=== PATIENT | female | born 1990 | race Caucasian/White ===

== ENCOUNTER 2018-06-05 20:34 | Observation (INO) | payer SELFPAY ==
[2018-06-05] MEDS ORDERED: Sodium Chloride 0.9% 1,000 ML IV ONE ×2 (22:07→23:46)
[2018-06-05] MEDS ORDERED: cefTRIAXone IV 1 gm in Dextros 50 ML IV ONE (22:08)
[2018-06-05 22:19] LABS: EOS % 0.2 % (0.0-4.0); HEMOGLOBIN 13.8 g/dL (11.0-16.0); PLATELET COUNT 277 K/uL (130-400)
[2018-06-05] MEDS ORDERED: Sodium Chloride 0.9% 1,000 ML ONE (22:26)
[2018-06-05 22:27] LABS: SQUAMOUS EPITHIAL 4 /hpf (0-5); URINE BACTERIA FEW (<OCC); URINE BILIRUBIN NEGATIVE (NEGATIVE); URINE BLOOD 2+ (NEGATIVE); URINE CLARITY Hazy (Clear); URINE COLOR Yellow (YELLOW); URINE GLUCOSE (UA) NORMAL (Normal); URINE LEUKOCYTE ESTERASE 2+ Leu/uL (Negative); URINE PROTEIN NEGATIVE (NEGATIVE)
[2018-06-05 22:30] LABS: HCG,QUALITATIVE URINE NEGATIVE (NEGATIVE)
[2018-06-05 22:35] LABS: BASO % 0.3 % (0.0-2.0); LYMPH # 1.6 K/uL (1.0-4.3); LYMPH % 9.7 % (20.0-40.0); MEAN CELL VOLUME 94.7 fL (81.0-99.0); MEAN CORPUSCULAR HEMOGLOBIN 31.2 pg (27.0-31.0); MEAN PLATELET VOLUME 8.5 fL (7.2-11.7); MONO # 1.8 K/uL (0.0-0.8); NEUT # 12.8 K/uL (1.8-7.0); NEUT % 78.8 % (50.0-75.0); RBC 4.44 Mil/uL (3.80-5.20); RED CELL DISTRIBUTION WIDTH 12.9 % (11.5-14.5); WHITE BLOOD COUNT 16.2 K/uL (4.8-10.8)
[2018-06-05 22:43] LABS: ALB/GLOB RATIO 1.3 (1.0-2.1); ALBUMIN 4.5 g/dL (3.5-5.0); ALT/SGPT 18 U/L (9-52); AST/SGOT 27 U/L (14-36); BLOOD UREA NITROGEN 6 mg/dL (7-17); CALCIUM 9.1 mg/dl (8.6-10.4); GFR NON-AFRICAN AMERICAN > 60; LIPASE 31 U/L (23-300)
[2018-06-05 23:48] LABS: BANDS 7 % (0-2); LYMPHOCYTE 5 % (20-40); MICROCYTOSIS SLIGHT; MONOCYTE 13 % (0-10); NEUTROPHIL 75 % (50-75); PLATELET ESTIMATE NORMAL (NORMAL); TOTAL CELLS COUNTED 100
[2018-06-05 23:50] LABS: HYPOCHROMIC SLIGHT; LARGE PLATELETS PRESENT; TEARDROP CELLS SLIGHT
--- NOTE | 2018-06-06 00:05 | C.PDOC ---
History Of Present Illness 27 year old female presents with right flank pain and urinary frequency. Reports Hx of UTI and R pyelonephritis. No other complaints. Time Seen by Provider: 06/05/18 22:01 Chief Complaint (Nursing): Abdominal Pain History Per: Patient History/Exam Limitations: no limitations Onset/Duration Of Symptoms: Hrs Current Symptoms Are (Timing): Still Present Location Of Pain/Discomfort: Other (Right flank) Quality Of Discomfort: Unable To Describe Associated Symptoms: Urinary Symptoms (Frequency) Exacerbating Factors: None Alleviating Factors: None Recent travel outside of the [place]: No Past Medical History Reviewed: Historical Data, Nursing Documentation, Vital Signs Vital Signs: Last Vital Signs Temp 101 F H 06/05/18 23:03 Pulse 94 H 06/05/18 23:03 Resp 20 06/05/18 23:03 BP 105/65 06/05/18 23:03 Pulse Ox 98 06/05/18 23:03 - Medical History PMH: Asthma Family History: States: No Known Family Hx - Social History Hx Alcohol Use: Yes Hx Substance Use: No - Immunization History Hx Tetanus Toxoid Vaccination: No Hx Influenza Vaccination: Yes Hx Pneumococcal Vaccination: Yes Review Of Systems Cardiovascular: Negative for: Chest Pain, Palpitations Respiratory: Negative for: Cough, Shortness of Breath Gastrointestinal: Negative for: Nausea, Vomiting, Abdominal Pain Genitourinary: Positive for: Frequency Musculoskeletal: Positive for: Other (Right flank pain) Neurological: Negative for: Weakness, Numbness Physical Exam - Physical Exam Appears: Non-toxic, Other (Mild distress) Skin: Normal Color, Warm Head: Atraumatic, Normacephalic Eye(s): bilateral: Normal Inspection Oral Mucosa: Moist Neck: Normal, Supple Chest: Symmetrical, No Tenderness Cardiovascular: Rhythm Regular Respiratory: Normal Breath Sounds, No Rales, No Rhonchi, No Wheezing Gastrointestinal/Abdominal: Soft, No Tenderness Back: CVA Tenderness (Right) Neurological/Psych: Oriented x3, Normal Speech ED Course And Treatment - Laboratory Results Result Diagrams: 06/05/18 22:15 06/05/18 22:15 Lab Results: Total Bilirubin 1.0 mg/dL (0.2-1.3) 06/05/18 22:15 AST 27 U/L (14-36) 06/05/18 22:15 ALT 18 U/L (9-52) 06/05/18 22:15 Alkaline Phosphatase 72 U/L (38-126) 06/05/18 22:15 Total Protein 7.9 g/dL (6.3-8.3) 06/05/18 22:15 Albumin 4.5 g/dL (3.5-5.0) 06/05/18 22:15 Globulin 3.5 gm/dL (2.2-3.9) 06/05/18 22:15 Albumin/Globulin Ratio 1.3 (1.0-2.1) 06/05/18 22:15 Lipase 31 U/L (23-300) 06/05/18 22:15 Urine Color Yellow (YELLOW) 06/05/18 22:15 Urine Clarity Hazy (Clear) 06/05/18 22:15 Urine pH 7.0 (5.0-8.0) 06/05/18 22:15 Ur Specific [place] 1.009 (1.003-1.030) 06/05/18 22:15 Urine Protein Negative mg/dL (NEGATIVE) 06/05/18 22:15 Urine Glucose (UA) Normal mg/dL (Normal) 06/05/18 22:15 Urine Ketones Trace mg/dL (NEGATIVE) 06/05/18 22:15 Urine Blood 2+ (NEGATIVE) H 06/05/18 22:15 Urine Nitrate Negative (NEGATIVE) 06/05/18 22:15 Urine Bilirubin Negative (NEGATIVE) 06/05/18 22:15 Urine Urobilinogen 4.0 mg/dL (0.2-1.0) H 06/05/18 22:15 Ur Leukocyte Esterase 2+ Surendra/uL (Negative) H 06/05/18 22:15 Urine WBC (Auto) 24 /hpf (0-5) H 06/05/18 22:15 Urine RBC (Auto) 5 /hpf (0-3) H 06/05/18 22:15 Ur Squamous Epith Cells 4 /hpf (0-5) 06/05/18 22:15 Urine Bacteria Few (<OCC) H 06/05/18 22:15 Urine HCG, Qual Negative (NEGATIVE) 06/05/18 22:15 Urine HCG, Qual Negative (NEGATIVE) 06/05/18 22:15 Lab Interpretation: Abnormal (UA 24 WBC's) Urine POC: Negative O2 Sat by Pulse Oximetry: 98 Pulse Ox Interpretation: Normal Reevaluation Time: 00:52 Reassessment Condition: Improved - Physician Consult Information Outcome Of Conversation: 0100: d/w Hospitalist Plan Nurse- cristal Dean to admit Medical Decision Making Medical Decision Making: pyelonephritis R prob due to frequent unresolved pyelo Disposition Doctor Will See Patient In The: Hospital Counseled Patient/Family Regarding: Studies Performed, Diagnosis - Disposition Disposition: HOSPITALIZED Disposition Time: 00:52 Condition: GOOD - Clinical Impression Clinical Impression: Pyelonephritis - Scribe Statement The provider has reviewed the documentation as recorded by the Scribbe Khan All medical record entries made by the Yosephibbe were at my direction and personall y dictated by me. I have reviewed the chart and agree that the record accurately reflects my personal performance of the history, physical exam, medical decision making, and the department course for this patient. I have also personally directed, reviewed, and agree with the discharge instructions and disposition.
[2018-06-06] MEDS ORDERED: Iodixanol 320 MG/ML 100 ML BOTTLE IV ONE (00:12)
--- NOTE | 2018-06-06 00:36 | C.PDOC ---
Time Seen by Provider: 06/05/18 22:01 Chief Complaint (Nursing): Abdominal Pain Past Medical History Reviewed: Historical Data, Nursing Documentation, Vital Signs Vital Signs: Last Vital Signs Temp 102.6 F H 06/05/18 21:21 Pulse 118 H 06/05/18 21:21 Resp 16 06/05/18 21:21 BP 106/70 06/05/18 21:21 Pulse Ox 100 06/05/18 21:21 - Medical History PMH: Asthma Other PMH: frequent UTI, Pyelonephritis - Social History Hx Alcohol Use: Yes Hx Substance Use: No - Immunization History Hx Tetanus Toxoid Vaccination: No Hx Influenza Vaccination: Yes Hx Pneumococcal Vaccination: Yes ED Course And Treatment - Laboratory Results Result Diagrams: 06/05/18 22:15 06/05/18 22:15 Lab Results: Total Bilirubin 1.0 mg/dL (0.2-1.3) 06/05/18 22:15 AST 27 U/L (14-36) 06/05/18 22:15 ALT 18 U/L (9-52) 06/05/18 22:15 Alkaline Phosphatase 72 U/L (38-126) 06/05/18 22:15 Total Protein 7.9 g/dL (6.3-8.3) 06/05/18 22:15 Albumin 4.5 g/dL (3.5-5.0) 06/05/18 22:15 Globulin 3.5 gm/dL (2.2-3.9) 06/05/18 22:15 Albumin/Globulin Ratio 1.3 (1.0-2.1) 06/05/18 22:15 Lipase 31 U/L (23-300) 06/05/18 22:15 Urine Color Yellow (YELLOW) 06/05/18 22:15 Urine Clarity Hazy (Clear) 06/05/18 22:15 Urine pH 7.0 (5.0-8.0) 06/05/18 22:15 Ur Specific [place] 1.009 (1.003-1.030) 06/05/18 22:15 Urine Protein Negative mg/dL (NEGATIVE) 06/05/18 22:15 Urine Glucose (UA) Normal mg/dL (Normal) 06/05/18 22:15 Urine Ketones Trace mg/dL (NEGATIVE) 06/05/18 22:15 Urine Blood 2+ (NEGATIVE) H 06/05/18 22:15 Urine Nitrate Negative (NEGATIVE) 06/05/18 22:15 Urine Bilirubin Negative (NEGATIVE) 06/05/18 22:15 Urine Urobilinogen 4.0 mg/dL (0.2-1.0) H 06/05/18 22:15 Ur Leukocyte Esterase 2+ Surendra/uL (Negative) H 06/05/18 22:15 Urine WBC (Auto) 24 /hpf (0-5) H 06/05/18 22:15 Urine RBC (Auto) 5 /hpf (0-3) H 06/05/18 22:15 Ur Squamous Epith Cells 4 /hpf (0-5) 06/05/18 22:15 Urine Bacteria Few (<OCC) H 06/05/18 22:15 Urine HCG, Qual Negative (NEGATIVE) 06/05/18 22:15 Urine HCG, Qual Negative (NEGATIVE) 06/05/18 22:15 O2 Sat by Pulse Oximetry: 100 Disposition - Disposition
[2018-06-06] MEDS ORDERED: Sodium Chloride 0.9% 1,000 ML IV SCH (03:00)
--- NOTE | 2018-06-06 03:10 | CP.PCM.HP ---
<Brenda Clark P - Last Filed: 06/06/18 07:24> History of Present Illness - History of Present Illness History of Present Illness: H&P for Dr. Guillen. HPI: 27 year old female presents to ED for severe R flank and RUQ abdominal pain that began yesterday. Pain is 10/10 and described as throbbing. Pain worsens with moving and improves with laying still. Patient has never experienced these symptoms before. Associated symptoms include fever, chills, nausea and 5 episodes of vomiting yesterday, non bloody, non billious. Tylenol helped improve fever. Patient denies diarrhea, constipation, dysuria, hematuria, and urinary frequency. PMHx: Asthma PSHx: breast augmentation Meds: Denies Allergies: Tetanus toxoid- swelling FamHx: Denies SocHx: Denies tobacco and illict drugs. 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 PMD: None Review of Systems: -Gen: + fever, + chills, No headache, No lethargy, No weakness. -HEENT: No dizziness, No change in vision, No change in hearing, No sore throat, No dysphagia, No nasal congestion, No mucous. -Cardio: No chest pain, No palpitations, No lower extremity edema, No orthopnea. -Resp: No cough, No dyspnea, No hemoptysis, No wheezing, No pain on inspiration. -GI: + abdominal pain, +flank pain, + nausea/vomiting, No diarrhea/constipation, No hematochezia, No hematemesis. -: No dysuria, No urinary freq, No incontinence, No hematuria, No change in urinary stream. -MSK: No back pain, No muscle weakness, No radiating pain. -Skin: No itching, No rash, No lesions. -Neuro: No confusion, No numbness, No tingling, No focal weakness, No radicular pain, No syncope. -Psych: No anxiety, No depression, No H/I, No S/I, No hallucinations. Present on Admission - Present on Admission Any Indicators Present on Admission: No Past Patient History - Past Social History Smoking Status: Never Smoked - PULMONARY Hx Asthma: Yes - PSYCHIATRIC Hx Substance Use: No - SURGICAL HISTORY Hx Surgeries: Yes Other/Comment: Bilateral breast implant 7 years ago - ANESTHESIA Hx Anesthesia: Yes Hx Anesthesia Reactions: No Meds Allergies/Adverse Reactions: Allergies Allergy/AdvReac Type Severity Reaction Status Date / Time Tetanus Vaccines and Toxoid Allergy Verified 06/05/18 21:30 Physical Exam - Constitutional Appears: No Acute Distress - Head Exam Head Exam: ATRAUMATIC, NORMOCEPHALIC - Eye Exam Eye Exam: EOMI, Normal appearance, PERRL - ENT Exam ENT Exam: Mucous Membranes Moist - Neck Exam Neck exam: Positive for: Full Rom, Normal Inspection - Respiratory Exam Respiratory Exam: Clear to Auscultation Bilateral. absent: Rales, Rhonchi, Wheezes - Cardiovascular Exam Cardiovascular Exam: Tachycardia, +S1, +S2 - GI/Abdominal Exam GI & Abdominal Exam: Normal Bowel Sounds, Rebound (in all quadrants), Soft, Tenderness (to palpation of RUQ, [place] sign negative). absent: Distended, Guarding, Rigid - Back Exam Back exam: CVA tenderness (R) - Neurological Exam Neurological exam: Alert, CN II-XII Intact, Oriented x3 - Psychiatric Exam Psychiatric exam: Normal Affect, Normal Mood - Skin Skin Exam: Dry, Normal Color, Warm Results - Vital Signs Recent Vital Signs: Last Vital Signs Temp 99.6 F 06/06/18 01:50 Pulse 87 06/06/18 01:50 Resp 20 06/06/18 01:50 BP 108/69 06/06/18 01:50 Pulse Ox 100 06/06/18 01:50 - Labs Result Diagrams: 06/06/18 06:19 06/06/18 06:19 Labs: Laboratory Results - last 24 hr 06/05/18 06/05/18 06/05/18 22:15 22:15 22:15 WBC 16.2 H RBC 4.44 Hgb 13.8 Hct 42.0 MCV 94.7 MCH 31.2 H MCHC 33.0 RDW 12.9 Plt Count 277 MPV 8.5 Neut % (Auto) 78.8 H Lymph % (Auto) 9.7 L Cole % (Auto) 11.0 H Eos % (Auto) 0.2 Baso % (Auto) 0.3 Neut # (Auto) 12.8 H Lymph # (Auto) 1.6 Cole # (Auto) 1.8 H Eos # (Auto) 0.0 Baso # (Auto) 0.0 Neutrophils % (Manual) 75 Band Neutrophils % 7 H Lymphocytes % (Manual) 5 L Monocytes % (Manual) 13 H Platelet Estimate Normal Large Platelets Present Hypochromasia (manual) Slight Microcytosis (manual) Slight Tear Drop Cells Slight Sodium 136 Potassium 4.1 Chloride 99 Carbon Dioxide 27 Anion Gap 14 BUN 6 L Creatinine 0.8 Est GFR ( Amer) > 60 Est GFR (Non-Af Amer) > 60 Random Glucose 105 Calcium 9.1 Total Bilirubin 1.0 AST 27 ALT 18 Alkaline Phosphatase 72 Total Protein 7.9 Albumin 4.5 Globulin 3.5 Albumin/Globulin Ratio 1.3 Lipase 31 Urine Color Yellow Urine Clarity Hazy Urine pH 7.0 Ur Specific [place] 1.009 Urine Protein Negative Urine Glucose (UA) Normal Urine Ketones Trace Urine Blood 2+ H Urine Nitrate Negative Urine Bilirubin Negative Urine Urobilinogen 4.0 H Ur Leukocyte Esterase 2+ H Urine WBC (Auto) 24 H Urine RBC (Auto) 5 H Ur Squamous Epith Cells 4 Urine Bacteria Few H Urine HCG, Qual Negative Assessment & Plan - Assessment and Plan (Free Text) Assessment: 27 year old F with R pyelonephritis Pyelonephritis CT abdomen: Multifocal R sided pyelonephritis, no fluid collection or abscess. See full report UA: 2+ blood, 2+LE, few bacteria WBC 16.2, bands 7 Zosyn 3.375g IVPB Q6H Tylenol 650mg Q6H PRN Morphine 1mg Q4H PRN pain Zofran 4mg IVP Q6H PRN NS @ 100mls/hr Hx of Asthma Patient not on any home meds Ppx SCDs Florastor Regular diet as tolerated Discussed with Dr. Mindy Clark, PGY-1 <Sameer Guillen - Last Filed: 06/06/18 19:25> Results - Vital Signs Recent Vital Signs: Last Vital Signs Temp 98.6 F 06/06/18 15:25 Pulse 86 06/06/18 15:25 Resp 18 06/06/18 15:25 BP 105/66 06/06/18 15:25 Pulse Ox 100 06/06/18 15:25 - Labs Result Diagrams: 06/06/18 06:19 06/06/18 06:19 Labs: Laboratory Results - last 24 hr 06/05/18 06/05/18 06/05/18 22:15 22:15 22:15 WBC 16.2 H RBC 4.44 Hgb 13.8 Hct 42.0 MCV 94.7 MCH 31.2 H MCHC 33.0 RDW 12.9 Plt Count 277 MPV 8.5 Neut % (Auto) 78.8 H Lymph % (Auto) 9.7 L Cole % (Auto) 11.0 H Eos % (Auto) 0.2 Baso % (Auto) 0.3 Neut # (Auto) 12.8 H Lymph # (Auto) 1.6 Cole # (Auto) 1.8 H Eos # (Auto) 0.0 Baso # (Auto) 0.0 Neutrophils % (Manual) 75 Band Neutrophils % 7 H Lymphocytes % (Manual) 5 L Monocytes % (Manual) 13 H Platelet Estimate Normal Large Platelets Present Hypochromasia (manual) Slight Microcytosis (manual) Slight Tear Drop Cells Slight Sodium 136 Potassium 4.1 Chloride 99 Carbon Dioxide 27 Anion Gap 14 BUN 6 L Creatinine 0.8 Est GFR ( Amer) > 60 Est GFR (Non-Af Amer) > 60 Random Glucose 105 Lactic Acid Calcium 9.1 Total Bilirubin 1.0 AST 27 ALT 18 Alkaline Phosphatase 72 Total Protein 7.9 Albumin 4.5 Globulin 3.5 Albumin/Globulin Ratio 1.3 Lipase 31 Urine Color Yellow Urine Clarity Hazy Urine pH 7.0 Ur Specific [place] 1.009 Urine Protein Negative Urine Glucose (UA) Normal Urine Ketones Trace Urine Blood 2+ H Urine Nitrate Negative Urine Bilirubin Negative Urine Urobilinogen 4.0 H Ur Leukocyte Esterase 2+ H Urine WBC (Auto) 24 H Urine RBC (Auto) 5 H Ur Squamous Epith Cells 4 Urine Bacteria Few H Urine HCG, Qual Negative RPR Hepatitis A IgM Ab Hep Bs Antigen Hep B Core IgM Ab Hepatitis C Antibody HIV 1&2 Antibody Screen 06/06/18 06/06/18 06/06/18 06:19 06:19 06:21 WBC 12.7 H RBC 3.52 L Hgb 11.2 D Hct 33.6 L MCV 95.2 MCH 31.9 H MCHC 33.5 RDW 12.4 Plt Count 212 MPV 8.2 Neut % (Auto) 75.8 H Lymph % (Auto) 11.5 L Cole % (Auto) 12.0 H Eos % (Auto) 0.3 Baso % (Auto) 0.4 Neut # (Auto) 9.6 H Lymph # (Auto) 1.5 Cole # (Auto) 1.5 H Eos # (Auto) 0.0 Baso # (Auto) 0.1 Neutrophils % (Manual) Band Neutrophils % Lymphocytes % (Manual) Monocytes % (Manual) Platelet Estimate Large Platelets Hypochromasia (manual) Microcytosis (manual) Tear Drop Cells Sodium 136 Potassium 3.6 Chloride 108 H Carbon Dioxide 23 Anion Gap 9 L BUN 6 L Creatinine 0.8 Est GFR ( Amer) > 60 Est GFR (Non-Af Amer) > 60 Random Glucose 96 Lactic Acid 0.6 L Calcium 7.8 L Total Bilirubin 0.9 AST 17 ALT 22 Alkaline Phosphatase 55 Total Protein 5.7 L Albumin 3.1 L D Globulin 2.7 Albumin/Globulin Ratio 1.2 Lipase Urine Color Urine Clarity Urine pH Ur Specific [place] Urine Protein Urine Glucose (UA) Urine Ketones Urine Blood Urine Nitrate Urine Bilirubin Urine Urobilinogen Ur Leukocyte Esterase Urine WBC (Auto) Urine RBC (Auto) Ur Squamous Epith Cells Urine Bacteria Urine HCG, Qual RPR Hepatitis A IgM Ab Hep Bs Antigen Hep B Core IgM Ab Hepatitis C Antibody HIV 1&2 Antibody Screen 06/06/18 06/06/18 06/06/18 14:06 14:06 14:06 WBC RBC Hgb Hct MCV MCH MCHC RDW Plt Count MPV Neut % (Auto) Lymph % (Auto) Cole % (Auto) Eos % (Auto) Baso % (Auto) Neut # (Auto) Lymph # (Auto) Cole # (Auto) Eos # (Auto) Baso # (Auto) Neutrophils % (Manual) Band Neutrophils % Lymphocytes % (Manual) Monocytes % (Manual) Platelet Estimate Large Platelets Hypochromasia (manual) Microcytosis (manual) Tear Drop Cells Sodium Potassium Chloride Carbon Dioxide Anion Gap BUN Creatinine Est GFR ( Amer) Est GFR (Non-Af Amer) Random Glucose Lactic Acid Calcium Total Bilirubin AST ALT Alkaline Phosphatase Total Protein Albumin Globulin Albumin/Globulin Ratio Lipase Urine Color Urine Clarity Urine pH Ur Specific [place] Urine Protein Urine Glucose (UA) Urine Ketones Urine Blood Urine Nitrate Urine Bilirubin Urine Urobilinogen Ur Leukocyte Esterase Urine WBC (Auto) Urine RBC (Auto) Ur Squamous Epith Cells Urine Bacteria Urine HCG, Qual RPR Nonreactive Hepatitis A IgM Ab Negative Hep Bs Antigen Negative Hep B Core IgM Ab Negative Hepatitis C Antibody Negative HIV 1&2 Antibody Screen Negative Assessment & Plan - Date & Time Date: 06/06/18 (I have seen and examined the patient. I agree with the findings and plan of care as documented by Dr. Clark. Patient with pyelonephritis. SIRS. Zosyn for now. Urine and blood cultures. History of asthma. Continue home meds. Monitor for acute changes.) Time: 19:23 Attending/Attestation - Attestation I have personally seen and examined this patient.: Yes I have fully participated in the care of the patient.: Yes I have reviewed all pertinent clinical information: Yes
[2018-06-06] MEDS: Piperacillin/Tazobact 3.375 GM in Sodium Chloride 100 ML IVPB SCH ×4 (03:30→20:20)
[2018-06-06 06:28] LABS: BASO # 0.1 K/uL (0.0-0.2); BASO % 0.4 % (0.0-2.0); EOS % 0.3 % (0.0-4.0); LYMPH # 1.5 K/uL (1.0-4.3); LYMPH % 11.5 % (20.0-40.0); MEAN CELL VOLUME 95.2 fL (81.0-99.0); MEAN CORPUSCULAR HEMOGLOBIN 31.9 pg (27.0-31.0); MEAN CORPUSCULAR HGB CONC 33.5 g/dL (33.0-37.0); MEAN PLATELET VOLUME 8.2 fL (7.2-11.7); MONO # 1.5 K/uL (0.0-0.8); NEUT # 9.6 K/uL (1.8-7.0); NEUT % 75.8 % (50.0-75.0); RBC 3.52 Mil/uL (3.80-5.20); RED CELL DISTRIBUTION WIDTH 12.4 % (11.5-14.5); WHITE BLOOD COUNT 12.7 K/uL (4.8-10.8)
[2018-06-06 06:50] LABS: ALB/GLOB RATIO 1.2 (1.0-2.1); ALBUMIN 3.1 g/dL (3.5-5.0); ALT/SGPT 22 U/L (9-52); AST/SGOT 17 U/L (14-36); BLOOD UREA NITROGEN 6 mg/dL (7-17); CALCIUM 7.8 mg/dl (8.6-10.4); GFR NON-AFRICAN AMERICAN > 60
[2018-06-06 06:57] LABS: HEMOGLOBIN 11.2 g/dL (11.0-16.0)
--- NOTE | 2018-06-06 07:25 | CP.PCM.PN ---
<Sachin Ennis - Last Filed: 06/06/18 13:08> Subjective - Date & Time of Evaluation Date of Evaluation: 06/06/18 Time of Evaluation: 07:25 - Subjective Subjective: PGY-1 Medicine Progress Note for Dr. Lloyd Patient seen and examined at bedside this AM. No acute overnight events reported. Patient spiked fever this AM of 101, tylenol was given. Patient continues to endorse mild RUQ and R flank pain, though pain is under control. She denies any nausea, new episodes of vomiting, diarrhea. No dysuria or urinary frequency reported this AM. Patient states she has had UTIs in the past, treated with unknown antibiotics. She is sexually active with her boyfriend of 1 year, no other partners. She does not use condoms, uses OCPs infrequently (obtained from Mom in [place]), no IUD devices. 12 pt ROS reviewed and otherwise negative. Objective - Vital Signs/Intake and Output Vital Signs (last 24 hours): Temp Pulse Resp BP Pulse Ox 99.6 F 87 20 108/69 100 06/06/18 01:50 06/06/18 01:50 06/06/18 01:50 06/06/18 01:50 06/06/18 01:50 Intake and Output: 06/06/18 06/06/18 06:59 18:59 Intake Total 700 Balance 700 - Medications Medications: Current Medications Acetaminophen (Tylenol 325mg Tab) 650 mg PO Q6 PRN PRN Reason: Fever >100.4 F Sodium Chloride (Sodium Chloride 0.9%) 1,000 mls @ 100 mls/hr IV .Q10H MARILUZ Last Admin: 06/06/18 03:15 Dose: 100 mls/hr Piperacillin Sod/Tazobactam (Sod 3.375 gm/ Sodium Chloride) 100 mls @ 200 mls/hr IVPB Q6H MARILUZ; Protocol Last Admin: 06/06/18 03:30 Dose: 200 mls/hr Morphine Sulfate (Morphine) 1 mg IVP Q4H PRN PRN Reason: Pain, moderate (4-7) Ondansetron HCl (Zofran Inj) 4 mg IVP Q6 PRN PRN Reason: Nausea/Vomiting - Labs Labs: 06/06/18 06:19 06/06/18 06:19 - Constitutional Appears: Non-toxic, No Acute Distress - Head Exam Head Exam: ATRAUMATIC, NORMAL INSPECTION, NORMOCEPHALIC - Eye Exam Eye Exam: EOMI, Normal appearance, PERRL Pupil Exam: NORMAL ACCOMODATION - ENT Exam ENT Exam: Mucous Membranes Moist, Normal Exam - Neck Exam Neck Exam: Full ROM, Normal Inspection. absent: Lymphadenopathy, Tenderness - Respiratory Exam Respiratory Exam: Clear to Ausculation Bilateral, NORMAL BREATHING PATTERN. absent: Accessory Muscle Use, Rales, Rhonchi, Wheezes, Respiratory Distress, Stridor - Cardiovascular Exam Cardiovascular Exam: REGULAR RHYTHM, +S1, +S2 - GI/Abdominal Exam GI & Abdominal Exam: Guarding (mild voluntary guarding RUQ), Soft, Tenderness, Normal Bowel Sounds (RUQ). absent: Distended, Firm, Rigid, Organomegaly, Rebound - Extremities Exam Extremities Exam: Full ROM, Normal Capillary Refill, Normal Inspection. absent: Calf Tenderness, Pedal Edema - Back Exam Back Exam: CVA tenderness (R), NORMAL INSPECTION - Neurological Exam Neurological Exam: Alert, Awake, Oriented x3 - Psychiatric Exam Psychiatric exam: Normal Affect, Normal Mood - Skin Skin Exam: Diaphoretic, Intact, Normal Color, Warm Assessment and Plan - Assessment and Plan (Free Text) Assessment: 27 year old female with pmhx of asthma, past UTIs presenting with R flank, RUQ pain and fevers, image findings suggestive of pyelonephritis. Plan: Acute pyelonephritis -fever spike this AM of 101 F, continue to monitor -CVA tenderness R -Leukocytosis downtrending -f/u cultures and sensitivity -CT abdomen/pelvis: multifocal R sided pyelonephritis, no fluid collection or abscess noted -morphine 1 mg q4h prn -tylenol 650 mg PO q6h prn -zofran 4 mg IVP q6h prn -NS @ 150cc/hr -zosyn 3.375g IVPB q6h [facility] Safe sex counseling -pt in monogamous sexual relationship with 1 male partner x 1 year -denies use of condoms, uses OCPs intermittently -counseling provided on use of barrier protection to reduce risk of STIs and U TIs -denies ever being tested for STIs, amenable to testing today -f/u GC/chlamydia, RPR, HIV, hepatitis panel Hx of asthma -< 1 attack/year -uses nebulizer that she obtains from mom in [place] PPx, Diet, Disposition -DVT ppx: scds -GI ppx: florastor -Diet: regular diet Case discussed with Dr. Prema Ennis DO, PGY-1 <Jewels Lloyd V - Last Filed: 06/06/18 17:10> Objective - Vital Signs/Intake and Output Vital Signs (last 24 hours): Temp Pulse Resp BP Pulse Ox 101 F H 94 H 20 111/64 97 06/06/18 08:50 06/06/18 07:00 06/06/18 07:00 06/06/18 07:00 06/06/18 07:00 Intake and Output: 06/06/18 06/06/18 06:59 18:59 Intake Total 700 1500 Balance 700 1500 - Medications Medications: Current Medications Acetaminophen (Tylenol 325mg Tab) 650 mg PO Q6 PRN PRN Reason: Fever >100.4 F Last Admin: 06/06/18 08:50 Dose: 650 mg Piperacillin Sod/Tazobactam (Sod 3.375 gm/ Sodium Chloride) 100 mls @ 200 mls/hr IVPB Q6H MARILUZ; Protocol Last Admin: 06/06/18 15:10 Dose: 200 mls/hr Sodium Chloride (Sodium Chloride 0.9%) 1,000 mls @ 150 mls/hr IV .Q6H40M MARILUZ Last Admin: 06/06/18 11:17 Dose: 150 mls/hr Morphine Sulfate (Morphine) 1 mg IVP Q4H PRN PRN Reason: Pain, moderate (4-7) Last Admin: 06/06/18 15:14 Dose: 1 mg Ondansetron HCl (Zofran Inj) 4 mg IVP Q6 PRN PRN Reason: Nausea/Vomiting Last Admin: 06/06/18 12:10 Dose: 4 mg Saccharomyces Boulardii (Florastor) 250 mg PO BID MARILUZ Last Admin: 06/06/18 11:00 Dose: 250 mg - Labs Labs: 06/06/18 06:19 06/06/18 06:19 Attending/Attestation - Attestation I have personally seen and examined this patient.: Yes I have fully participated in the care of the patient.: Yes I have reviewed all pertinent clinical information, including history, physical exam and plan: Yes Notes (Text): Patient seen, examined and case discussed with certified court/medical interpreter. Patient seen this morning. She reports yesterday she had a fever which prompted her to come to hospital. Patient reports history of frequent UTIs in the past, which she has used Amoxicilln in the past. Patient reports she is monogamous with her current boyfriend, however, she reports she does not use condoms and use OCPs but recently ran out, she reports she does not want to be . Patient noted on exam to have left CVA tenderness, fever, and mild suprapubic pain. Patient was febrile this morning 101F. 1. Sepsis secondary to Acute pyelonephritis Assessment/Plan * Criteria: fever, elevated white count, source of infection pyelonephritis * CT Abdomen/Pelvis CT (06/05/18): right sided pyelonephritis and urinary tract infectious process. No evidence of abscess formation. * Zosyn 3.375 g IVPB Q6H (active since 06/06/18) * Florastor 250mg PO BID * Morphine 1mg IVP Q4H PRN pain, moderate * NS 150cc/hr * Blood culture (06/05/18): pending * Blood culture (06/06/18): pending * Urine culture (06/05/18): pending * Advise hygiene practices to avoid UTI including wiping back to front, void post intercourse 2. Safe sex counseling Assessment/Plan * counselled regarding prevention including OCPs * Advised use of condoms during intercourse * Advised OCP or IUD pending preference--->advised to f/u obgyn for further misha gement * Amenable to STD testing 3. Hx of asthma, Mild Assessment/Plan * Duoneb PRN shortness of breathe 4. PPx, Diet, Disposition * DVT ppx: scds * GI ppx: florastor 250mg PO BID * IV fluids: NS 150 cc/hr * Diet: regular diet Disposition: follow-up cultures for optimization of therapy. Patient to benefit from IV antibiotic as this time for her acute pyelonephritis.
--- NOTE | 2018-06-06 08:47 | CT ---
Date of service: 06/06/2018 PROCEDURE: CT Abdomen and Pelvis with contrast HISTORY: ? R pyelo COMPARISON: None. TECHNIQUE: Contrast dose: 100 mL of Visipaque 320 intravenously. Axial and reformatted coronal and sagittal CT images of the abdomen and pelvis were obtained after IV contrast administration Radiation dose: Total exam DLP = 676.63 mGy-cm. This CT exam was performed using one or more of the following dose reduction techniques: Automated exposure control, adjustment of the mA and/or kV according to patient size, and/or use of iterative reconstruction technique. FINDINGS: LOWER THORAX: Mild bibasilar atelectasis. LIVER: Unremarkable. No gross lesion or ductal dilatation. GALLBLADDER AND BILE DUCTS: Unremarkable. PANCREAS: Unremarkable. No gross lesion or ductal dilatation. SPLEEN: Unremarkable. ADRENALS: Unremarkable. No mass. KIDNEYS AND URETERS: Mild enlargement of the right kidney demonstrate patchy cortical enhancement consistent with acute pyelonephritis. There is a trace right perinephric fluid seen. There is mild dilatation of the right kidney collecting system associated with diffuse wall thickening suggestive of UTI and infectious process. The left kidney is grossly unremarkable. VASCULATURE: Unremarkable. No aortic aneurysm. No aortic atherosclerotic calcification or mural plaque present. BOWEL: Unremarkable. No obstruction. No gross mural thickening. APPENDIX: Normal appendix. PERITONEUM: Unremarkable. No free fluid. No free air. LYMPH NODES: Unremarkable. No enlarged lymph nodes. BLADDER: Unremarkable. REPRODUCTIVE: Unremarkable. BONES: No acute fracture. OTHER FINDINGS: None. IMPRESSION: Findings consistent with right-sided pyelonephritis and urinary tract infectious process. No evidence of abscess formation. Preliminary report contains concordant findings was submitted by [facility].
[2018-06-06] MEDS: Saccharomyces Boulardi 250 mg Cap PO SCH ×2 (11:00→17:10)
[2018-06-06] MEDS: Sodium Chloride 0.9% 1,000 ML IV SCH ×4 (11:17→23:55)
[2018-06-06 14:58] LABS: HEPATITIS B SURFACE AG Negative (NEGATIVE)
[2018-06-06 15:04] LABS: HEPATITIS A IGM NEGATIVE (NEGATIVE); HEPATITIS B CORE AB NEGATIVE (NEGATIVE)
[2018-06-06 15:16] LABS: HEPATITIS C ANTIBODY NEGATIVE (NEGATIVE)
[2018-06-06] MEDS ORDERED: Albuterol-Ipratrop 3 mg / 0.5 (3 ml) UD INH PRN (17:07)
[2018-06-07] MEDS: Piperacillin/Tazobact 3.375 GM in Sodium Chloride 100 ML IVPB SCH ×2 (03:42→09:25)
[2018-06-07] MEDS: Sodium Chloride 0.9% 1,000 ML IV SCH ×2 (03:43→11:45)
[2018-06-07 04:53] VITALS: PULSE 93; RESP 20
[2018-06-07 08:17] LABS: BASO % 0.4 % (0.0-2.0); EOS # 0.2 K/uL (0.0-0.7); EOS % 2.1 % (0.0-4.0); HEMOGLOBIN 10.9 g/dL (11.0-16.0); LYMPH % 20.7 % (20.0-40.0); MEAN CELL VOLUME 95.2 fL (81.0-99.0); MEAN CORPUSCULAR HEMOGLOBIN 32.7 pg (27.0-31.0); MEAN CORPUSCULAR HGB CONC 34.4 g/dL (33.0-37.0); MEAN PLATELET VOLUME 8.3 fL (7.2-11.7); MONO # 1.2 K/uL (0.0-0.8); MONO % 12.2 % (0.0-10.0); NEUT # 6.2 K/uL (1.8-7.0); NEUT % 64.6 % (50.0-75.0); RBC 3.34 Mil/uL (3.80-5.20); RED CELL DISTRIBUTION WIDTH 12.6 % (11.5-14.5); WHITE BLOOD COUNT 9.6 K/uL (4.8-10.8)
[2018-06-07 08:49] VITALS: BP 112/73; TEMP 98.1; O2SAT 99
[2018-06-07 08:51] LABS: ALB/GLOB RATIO 1.1 (1.0-2.1); ALBUMIN 2.9 g/dL (3.5-5.0); ALT/SGPT 8 U/L (9-52); AST/SGOT 16 U/L (14-36); BLOOD UREA NITROGEN 3 mg/dL (7-17); CALCIUM 7.9 mg/dl (8.6-10.4); GFR NON-AFRICAN AMERICAN > 60
[2018-06-07] MEDS: Saccharomyces Boulardi 250 mg Cap PO SCH (09:24)
--- NOTE | 2018-06-07 10:19 | RAD ---
Date of service: 06/06/2018 HISTORY: fever COMPARISON: No prior. FINDINGS: LUNGS: The lungs are well inflated and clear. PLEURA: No pleural effusions or pneumothorax. CARDIOVASCULAR: The heart is normal in size. No aortic atherosclerotic calcifications present. OSSEOUS STRUCTURES: Within normal limits for the patient's age. VISUALIZED UPPER ABDOMEN: Normal. OTHER FINDINGS: None. IMPRESSION: No active pulmonary disease.
--- NOTE | 2018-06-07 11:25 | CP.PCM.DIS ---
<Mckayla Mandujano - Last Filed: 06/07/18 11:20> Provider - Provider Date of Admission: 06/06/18 00:37 Attending physician: Jewels Lloyd DO Time Spent in preparation of Discharge (in minutes): 30 Hospital Course - Lab Results Lab Results: Micro Results 06/05/18 22:34 Urine Random Urine Culture - Final Gram Negative Brennen 06/05/18 03:54 Blood-Venous Blood Culture - Preliminary NO GROWTH AFTER 24 HOURS 06/05/18 21:30 Blood-Venous Blood Culture - Preliminary NO GROWTH AFTER 24 HOURS Most Recent Lab Values WBC 9.6 K/uL (4.8-10.8) 06/07/18 07:59 RBC 3.34 Mil/uL (3.80-5.20) L 06/07/18 07:59 Hgb 10.9 g/dL (11.0-16.0) L 06/07/18 07:59 Hct 31.8 % (34.0-47.0) L 06/07/18 07:59 MCV 95.2 fL (81.0-99.0) 06/07/18 07:59 MCH 32.7 pg (27.0-31.0) H 06/07/18 07:59 MCHC 34.4 g/dL (33.0-37.0) 06/07/18 07:59 RDW 12.6 % (11.5-14.5) 06/07/18 07:59 Plt Count 209 K/uL (130-400) 06/07/18 07:59 MPV 8.3 fL (7.2-11.7) 06/07/18 07:59 Neut % (Auto) 64.6 % (50.0-75.0) 06/07/18 07:59 Lymph % (Auto) 20.7 % (20.0-40.0) 06/07/18 07:59 [place] % (Auto) 12.2 % (0.0-10.0) H 06/07/18 07:59 Eos % (Auto) 2.1 % (0.0-4.0) 06/07/18 07:59 Baso % (Auto) 0.4 % (0.0-2.0) 06/07/18 07:59 Neut # (Auto) 6.2 K/uL (1.8-7.0) 06/07/18 07:59 Lymph # (Auto) 2.0 K/uL (1.0-4.3) 06/07/18 07:59 [place] # (Auto) 1.2 K/uL (0.0-0.8) H 06/07/18 07:59 Eos # (Auto) 0.2 K/uL (0.0-0.7) 06/07/18 07:59 Baso # (Auto) 0.0 K/uL (0.0-0.2) 06/07/18 07:59 Neutrophils % (Manual) 75 % (50-75) 06/05/18 22:15 Band Neutrophils % 7 % (0-2) H 06/05/18 22:15 Lymphocytes % (Manual) 5 % (20-40) L 06/05/18 22:15 Monocytes % (Manual) 13 % (0-10) H 06/05/18 22:15 Platelet Estimate Normal (NORMAL) 06/05/18 22:15 Large Platelets Present 06/05/18 22:15 Hypochromasia (manual) Slight 06/05/18 22:15 Microcytosis (manual) Slight 06/05/18 22:15 Tear Drop Cells Slight 06/05/18 22:15 Sodium 137 mmol/L (132-148) 06/07/18 07:59 Potassium 3.7 mmol/L (3.6-5.2) 06/07/18 07:59 Chloride 108 mmol/L (98-107) H 06/07/18 07:59 Carbon Dioxide 23 mmol/L (22-30) 06/07/18 07:59 Anion Gap 9 (10-20) L 06/07/18 07:59 BUN 3 mg/dL (7-17) L 06/07/18 07:59 Creatinine 0.6 mg/dL (0.7-1.2) L 06/07/18 07:59 Est GFR ( Amer) > 60 06/07/18 07:59 Est GFR (Non-Af Amer) > 60 06/07/18 07:59 Random Glucose 89 mg/dL (65-105) 06/07/18 07:59 Lactic Acid 0.6 mmol/L (0.7-2.1) L 06/06/18 06:21 Calcium 7.9 mg/dl (8.6-10.4) L 06/07/18 07:59 Phosphorus 3.0 mg/dL (2.5-4.5) 06/07/18 07:59 Magnesium 2.1 mg/dL (1.6-2.3) 06/07/18 07:59 Total Bilirubin 0.5 mg/dL (0.2-1.3) 06/07/18 07:59 AST 16 U/L (14-36) 06/07/18 07:59 ALT 8 U/L (9-52) L D 06/07/18 07:59 Alkaline Phosphatase 54 U/L (38-126) 06/07/18 07:59 Total Protein 5.5 g/dL (6.3-8.3) L 06/07/18 07:59 Albumin 2.9 g/dL (3.5-5.0) L 06/07/18 07:59 Globulin 2.6 gm/dL (2.2-3.9) 06/07/18 07:59 Albumin/Globulin Ratio 1.1 (1.0-2.1) 06/07/18 07:59 Lipase 31 U/L (23-300) 06/05/18 22:15 Urine Color Yellow (YELLOW) 06/05/18 22:15 Urine Clarity Hazy (Clear) 06/05/18 22:15 Urine pH 7.0 (5.0-8.0) 06/05/18 22:15 Ur Specific [place] 1.009 (1.003-1.030) 06/05/18 22:15 Urine Protein Negative mg/dL (NEGATIVE) 06/05/18 22:15 Urine Glucose (UA) Normal mg/dL (Normal) 06/05/18 22:15 Urine Ketones Trace mg/dL (NEGATIVE) 06/05/18 22:15 Urine Blood 2+ (NEGATIVE) H 06/05/18 22:15 Urine Nitrate Negative (NEGATIVE) 06/05/18 22:15 Urine Bilirubin Negative (NEGATIVE) 06/05/18 22:15 Urine Urobilinogen 4.0 mg/dL (0.2-1.0) H 06/05/18 22:15 Ur Leukocyte Esterase 2+ Surendra/uL (Negative) H 06/05/18 22:15 Urine WBC (Auto) 24 /hpf (0-5) H 06/05/18 22:15 Urine RBC (Auto) 5 /hpf (0-3) H 06/05/18 22:15 Ur Squamous Epith Cells 4 /hpf (0-5) 06/05/18 22:15 Urine Bacteria Few (<OCC) H 06/05/18 22:15 Urine HCG, Qual Negative (NEGATIVE) 06/05/18 22:15 RPR Nonreactive (NONREACTIVE) 06/06/18 14:06 Hepatitis A IgM Ab Negative (NEGATIVE) 06/06/18 14:06 Hep Bs Antigen Negative (NEGATIVE) 06/06/18 14:06 Hep B Core IgM Ab Negative (NEGATIVE) 06/06/18 14:06 Hepatitis C Antibody Negative (NEGATIVE) 06/06/18 14:06 HIV 1&2 Antibody Screen Negative (NEGATIVE) 06/06/18 14:06 - Hospital Course Hospital Course: Upon Admission 27 year old female presents to ED for severe R flank and RUQ abdominal pain that began yesterday. Pain is 10/10 and described as throbbing. Pain worsens with moving and improves with laying still. Patient has never experienced these symptoms before. Associated symptoms include fever, chills, nausea and 5 episodes of vomiting yesterday, non bloody, non billious. Tylenol helped improve fever. Patient denies diarrhea, constipation, dysuria, hematuria, and urinary frequency. Hospital Course Patient admitted for RUQ abdominal and sever R flank pain. On CT found to have right sided pyelonephriits. On labs patient found to have white count. IV zosyn was initiated with repeat CBCs. White count started to trend down and patient clinically felt better. Oral antibiotic was prescribed for discharge. Discharge Plan 1. Patient is stable for discharge to home as per Dr. Lloyd. 2. Patient will need to followup with [facility] within a week of discharge from hospital. Patient will receive further medical management and contraception medication if necessary. 3. Patient will take the Augmentin and Florastor for the next 10 days as prescribed. 4. Patient should return to hospital if symptoms worsen or recur. 5. Patient understands the plan as above and agrees. 1. El paciente se encuentra estable para el [facility] a domicilio segn el Dr. Lloyd. 2. El paciente deber realizar un seguimiento en la clnica de [facility] en el [facility] dentro de sada semana despus del [facility]. El paciente recibir ms tratamiento mdico y medicacin anticonceptiva si es necesario. 3. El paciente nelly Augmentin y Florastor mamta los prximos 10 anthony segn lo prescrito. 4. El paciente debe regresar al hospital si los sntomas empeoran o reaparecen. 5. El paciente entiende el plan an est arriba y est de acuerdo. Disclaimer: Above is synopsis of patient's current hospital admission. For full report refer to EMR. Discharge Exam - Head Exam Head Exam: ATRAUMATIC, NORMAL INSPECTION, NORMOCEPHALIC - Eye Exam Eye Exam: EOMI, Normal appearance. absent: Nystagmus, Scleral icterus - ENT Exam ENT Exam: Mucous Membranes Moist - Respiratory Exam Respiratory Exam: NORMAL BREATHING PATTERN. absent: Decreased Breath Sounds, Respiratory Distress - Cardiovascular Exam Cardiovascular Exam: REGULAR RHYTHM, +S1, +S2 - GI/Abdominal Exam GI & Abdominal Exam: Normal Bowel Sounds, Soft. absent: Tenderness - Extremities Exam Extremities exam: normal inspection - Neurological Exam Neurological exam: Alert, Oriented x3 - Psychiatric Exam Psychiatric exam: Normal Affect, Normal Mood - Skin Skin Exam: Dry, Intact, Normal Color Discharge Plan - Discharge Medications Prescriptions: Amoxicillin/Clavulanate [Augmentin 875 MG-125 MG] 1 tab PO BID #20 tab Saccharomyces Boulardi [Florastor] 250 mg PO BID #20 cap - Follow Up Plan Condition: GOOD Disposition: HOME/ ROUTINE Instructions: Saccharomyces boulardii, Urinary Tract Infection, Adult (DC), Amoxicillin and Clavulanate Additional Instructions: 1. Patient is stable for discharge to home as per Dr. Lloyd. 2. Patient will need to followup with [facility] within a week of discharge from hospital. Patient will receive further medical management and contraception medication if necessary. 3. Patient will take the Augmentin and Florastor for the next 10 days as prescribed. 4. Patient should return to hospital if symptoms worsen or recur. 5. Patient understands the plan as above and agrees. 1. El paciente se encuentra estable para el [facility] a domicilio segn el Dr. Lloyd. 2. El paciente deber realizar un seguimiento en la clnica de [facility] del [facility] en el [facility] dentro de sada semana despus del [facility]. El paciente recibir ms tratamiento mdico y medicacin anticonceptiva si es necesario. 3. El paciente nelly Augmentin y Florastor mamta los prximos 10 anthony segn lo prescrito. 4. El paciente debe regresar al hospital si los sntomas empeoran o reaparecen. 5. El paciente entiende el plan an est arriba y est de acuerdo. Referrals: [facility] [Outside] <Jewels Lloyd V - Last Filed: 06/07/18 18:46> Provider - Provider Date of Admission: 06/06/18 00:37 Attending physician: Jewels Lloyd DO Time Spent in preparation of Discharge (in minutes): 31 Diagnosis - Discharge Diagnosis (1) Sepsis Status: Resolved Comment: secondary to pyleonephritis. blood cultures negative. urine culture: gram negative brennen (10,000-50,[address]). [address] scan noted for pyleonephritis. white count on discharge as normalized. CVA tenderness improved. patient is able to tolerate PO meds. Discharge on PO antibiotic and probiotic. Repeat UA shows improvement. Pending urine culture to follow-up upon establishment in the [facility] (2) Pyelonephritis Status: Resolved Comment: Patient started on Zosyn IV during hospitalization; white count has improved while on IV abx; patient able to tolerate PO to transition to PO antibiotic on discharge. (3) Screening for STD (sexually transmitted disease) Status: Acute Comment: Patient is sexually active female. HIV negative RPR nonreactive hepatitis panel negative pending GC. advised safe sex practices including condom use (4) General counselling and advice on contraception Status: Acute Comment: recommended to use her control daily since she does not want to become and condom use. Patient recommended to visit [facility] or the [facility] clinic at the [facility] for contraception method. advised to complete therapy for uti prior to engaging relations with her boyfriend Hospital Course - Lab Results Lab Results: Micro Results 06/06/18 10:15 Blood Blood Culture - Preliminary NO GROWTH AFTER 24 HOURS 06/06/18 10:40 Blood Blood Culture - Preliminary NO GROWTH AFTER 24 HOURS 06/05/18 22:34 Urine Random Urine Culture - Final Gram Negative Brennen 06/05/18 03:54 Blood-Venous Blood Culture - Preliminary NO GROWTH AFTER 24 HOURS 06/05/18 21:30 Blood-Venous Blood Culture - Preliminary NO GROWTH AFTER 24 HOURS Most Recent Lab Values WBC 9.6 K/uL (4.8-10.8) 06/07/18 07:59 RBC 3.34 Mil/uL (3.80-5.20) L 06/07/18 07:59 Hgb 10.9 g/dL (11.0-16.0) L 06/07/18 07:59 Hct 31.8 % (34.0-47.0) L 06/07/18 07:59 MCV 95.2 fL (81.0-99.0) 06/07/18 07:59 MCH 32.7 pg (27.0-31.0) H 06/07/18 07:59 MCHC 34.4 g/dL (33.0-37.0) 06/07/18 07:59 RDW 12.6 % (11.5-14.5) 06/07/18 07:59 Plt Count 209 K/uL (130-400) 06/07/18 07:59 MPV 8.3 fL (7.2-11.7) 06/07/18 07:59 Neut % (Auto) 64.6 % (50.0-75.0) 06/07/18 07:59 Lymph % (Auto) 20.7 % (20.0-40.0) 06/07/18 07:59 [place] % (Auto) 12.2 % (0.0-10.0) H 06/07/18 07:59 Eos % (Auto) 2.1 % (0.0-4.0) 06/07/18 07:59 Baso % (Auto) 0.4 % (0.0-2.0) 06/07/18 07:59 Neut # (Auto) 6.2 K/uL (1.8-7.0) 06/07/18 07:59 Lymph # (Auto) 2.0 K/uL (1.0-4.3) 06/07/18 07:59 [place] # (Auto) 1.2 K/uL (0.0-0.8) H 06/07/18 07:59 Eos # (Auto) 0.2 K/uL (0.0-0.7) 06/07/18 07:59 Baso # (Auto) 0.0 K/uL (0.0-0.2) 06/07/18 07:59 Neutrophils % (Manual) 75 % (50-75) 06/05/18 22:15 Band Neutrophils % 7 % (0-2) H 06/05/18 22:15 Lymphocytes % (Manual) 5 % (20-40) L 06/05/18 22:15 Monocytes % (Manual) 13 % (0-10) H 06/05/18 22:15 Platelet Estimate Normal (NORMAL) 06/05/18 22:15 Large Platelets Present 06/05/18 22:15 Hypochromasia (manual) Slight 06/05/18 22:15 Microcytosis (manual) Slight 06/05/18 22:15 Tear Drop Cells Slight 06/05/18 22:15 Sodium 137 mmol/L (132-148) 06/07/18 07:59 Potassium 3.7 mmol/L (3.6-5.2) 06/07/18 07:59 Chloride 108 mmol/L (98-107) H 06/07/18 07:59 Carbon Dioxide 23 mmol/L (22-30) 06/07/18 07:59 Anion Gap 9 (10-20) L 06/07/18 07:59 BUN 3 mg/dL (7-17) L 06/07/18 07:59 Creatinine 0.6 mg/dL (0.7-1.2) L 06/07/18 07:59 Est GFR ( Amer) > 60 06/07/18 07:59 Est GFR (Non-Af Amer) > 60 06/07/18 07:59 Random Glucose 89 mg/dL (65-105) 06/07/18 07:59 Lactic Acid 0.6 mmol/L (0.7-2.1) L 06/06/18 06:21 Calcium 7.9 mg/dl (8.6-10.4) L 06/07/18 07:59 Phosphorus 3.0 mg/dL (2.5-4.5) 06/07/18 07:59 Magnesium 2.1 mg/dL (1.6-2.3) 06/07/18 07:59 Total Bilirubin 0.5 mg/dL (0.2-1.3) 06/07/18 07:59 AST 16 U/L (14-36) 06/07/18 07:59 ALT 8 U/L (9-52) L D 06/07/18 07:59 Alkaline Phosphatase 54 U/L (38-126) 06/07/18 07:59 Total Protein 5.5 g/dL (6.3-8.3) L 06/07/18 07:59 Albumin 2.9 g/dL (3.5-5.0) L 06/07/18 07:59 Globulin 2.6 gm/dL (2.2-3.9) 06/07/18 07:59 Albumin/Globulin Ratio 1.1 (1.0-2.1) 06/07/18 07:59 Lipase 31 U/L (23-300) 06/05/18 22:15 Urine Color Straw (YELLOW) 06/07/18 15:20 Urine Clarity Clear (Clear) 06/07/18 15:20 Urine pH 6.0 (5.0-8.0) 06/07/18 15:20 Ur Specific [place] 1.008 (1.003-1.030) 06/07/18 15:20 Urine Protein Negative mg/dL (NEGATIVE) 06/07/18 15:20 Urine Glucose (UA) Normal mg/dL (Normal) 06/07/18 15:20 Urine Ketones Negative mg/dL (NEGATIVE) 06/07/18 15:20 Urine Blood 1+ (NEGATIVE) H 06/07/18 15:20 Urine Nitrate Negative (NEGATIVE) 06/07/18 15:20 Urine Bilirubin Negative (NEGATIVE) 06/07/18 15:20 Urine Urobilinogen Normal mg/dL (0.2-1.0) 06/07/18 15:20 Ur Leukocyte Esterase Neg Surendra/uL (Negative) 06/07/18 15:20 Urine WBC (Auto) 1 /hpf (0-5) 06/07/18 15:20 Urine RBC (Auto) 4 /hpf (0-3) H 06/07/18 15:20 Ur Squamous Epith Cells 1 /hpf (0-5) 06/07/18 15:20 Urine Bacteria Few (<OCC) H 06/05/18 22:15 Urine HCG, Qual Negative (NEGATIVE) 06/05/18 22:15 RPR Nonreactive (NONREACTIVE) 06/06/18 14:06 Hepatitis A IgM Ab Negative (NEGATIVE) 06/06/18 14:06 Hep Bs Antigen Negative (NEGATIVE) 06/06/18 14:06 Hep B Core IgM Ab Negative (NEGATIVE) 06/06/18 14:06 Hepatitis C Antibody Negative (NEGATIVE) 06/06/18 14:06 HIV 1&2 Antibody Screen Negative (NEGATIVE) 06/06/18 14:06 Attending/Attestation - Attestation I have personally seen and examined this patient.: Yes I have fully participated in the care of the patient.: Yes I have reviewed all pertinent clinical information, including history, physical exam and plan: Yes Notes (Text): Patient seen, examined and case discussed with medical lab director. Patient seen this morning. Patient reports she is doing better. Patient able to tolerate diet. patient's white count has normalized. Chest xray is normal. CVA tenderness improved. urine culture supporting gram negative brennen (10,000-50,000 CFU). CT scan completed noted for pyelonephritis. Patient reports she is feeling better. Repeat UA shows improvement while on IV abx therapy. Patient to be discharged on: 1) Augmentin 875-125 mg tab PO BID for 10 days 2) Florastor 250mg PO BID for ten days Patient may use Tylenol or motrin OTC as needed for pain or fever. This is a summary of patient's hospitalization. Please see EMR for full detail of record. patient recommended to establish care at the [id number] ([phone]) in [place]; will need follow-up regarding contraception use and overall health care maintenance. Discharge Diagnoses: 1. Sepsis secondary to Acute pyelonephritis (resolved) Assessment/Plan * Criteria: fever, elevated white count, source of infection pyelonephritis * White count normalized * CT Abdomen/Pelvis CT (06/05/18): right sided pyelonephritis and urinary tract infectious process. No evidence of abscess formation. * Zosyn 3.375 g IVPB Q6H (active since 06/06/18) * Florastor 250mg PO BID * Morphine 1mg IVP Q4H PRN pain, moderate * NS 150cc/hr * Blood culture (06/05/18): pending * Blood culture (06/06/18): pending * Urine culture (06/05/18): pending * Advise hygiene practices to avoid UTI including wiping back to front, void post intercourse 2. STD screening Assessment/Plan * counselled regarding prevention including OCPs * Advised use of condoms during intercourse * Advised OCP or IUD pending preference--->advised to f/u obgyn for further management * Amenable to STD testing 3. Hx of asthma, Mild Assessment/Plan * Duoneb PRN shortness of breathe 4. PPx, Diet, Disposition * DVT ppx: scds * GI ppx: florastor 250mg PO BID * IV fluids: NS 150 cc/hr * Diet: regular diet
[2018-06-07] MEDS ORDERED: DiphenhydrAMINE 12.5 mg/5 ml LIQ UD (5 ml) PO ONE (12:00)
[2018-06-07 15:31] LABS: SQUAMOUS EPITHIAL 1 /hpf (0-5); URINE BILIRUBIN NEGATIVE (NEGATIVE); URINE BLOOD 1+ (NEGATIVE); URINE CLARITY Clear (Clear); URINE COLOR Straw (YELLOW); URINE GLUCOSE (UA) NORMAL (Normal); URINE LEUKOCYTE ESTERASE NEG Leu/uL (Negative); URINE PROTEIN NEGATIVE (NEGATIVE); URINE UROBILINOGEN NORMAL mg/dL (0.2-1.0)
== END 2018-06-07 13:15 | disposition home or self-care (01) ==
LOC: C.ER 20:34 → C.9E 06-06 00:37 → C.6T 06-06 01:17
PROVIDERS: ADMIT Hospitalist; ATTEND Hospitalist
DX: A41.9 Sepsis, unspecified organism (principal); J45.909 Unspecified asthma, uncomplicated; N10 Acute pyelonephritis; Z87.440 Personal history of urinary (tract) infections
CPT/HCPCS: 36415; 71045; 74177; 80053; 80074; 81001; 81025; 83605; 83690; 83735; 84100; 84703; 85025; 86592; 86703; 87040; 87086; 87491; 87591; 96374; 99285; G0378; J0696; J1885; J2270; J2405; J2543; J7030; Q9967